=== PATIENT | female | born 1970 | race Caucasian/White ===

== ENCOUNTER → 2018-08-30 | Outpatient (CLI) | payer MEDICAID, OTHER ==
--- NOTE | 2018-08-31 08:17 | XR ---
EXAMINATION TYPE: XR abdomen 1V DATE OF EXAM: 08/30/2018 4:59 PM CLINICAL HISTORY: Pelvic pain and burning. TECHNIQUE: Single supine KUB image of the abdomen is obtained. COMPARISON: None. FINDINGS: Scattered gas is seen in non-distended stomach and small bowel loops. Gas and fecal materia l is seen in non-distended colon. Pelvic phleboliths are present. Visualized osseous structures are i ntact. Lung bases are not included. IMPRESSION: Overall nonobstructive bowel gas pattern.
== END | disposition home or self-care (01) ==
LOC: RADXRYALE 16:39
PROVIDERS: ATTEND Physician Assistant Medical
DX: R10.2 Pelvic and perineal pain (principal)
CPT/HCPCS: 74018; 87077; 87086; 87186